=== PATIENT | male | born 1980 | race Caucasian/White ===

== ENCOUNTER 2018-10-05 16:30 | Emergency (ER) | payer MEDICAID ==
[~2018-10-05] VITALS: Ht 172.7 cm; Wt 108.9 kg
[2018-10-05] MEDS ORDERED: IOHEXOL 300 MG/ML 100ML VIAL. IV ONE (17:00)
[2018-10-05] MEDS ORDERED: CONTRAST GIVEN. MC PRN (17:00)
[2018-10-05 17:07] LABS: BASO % 1 % (0-3); EOS # 0.1 x10^3/uL (0.0-0.7); EOS % 1 % (0-3); HEMATOCRIT 41.5 % (39.0-53.0); HEMOGLOBIN 14.6 g/dL (13.0-17.5); LYMPH # 2.4 x10^3/uL (1.0-4.8); LYMPH % 32 % (24-48); MEAN CORPUSCULAR HEMOGLOBIN 31 pg (25-35); MEAN CORPUSCULAR HGB CONC 35 g/dL (31-37); MEAN CORPUSCULAR VOLUME 89 fL (79-100); MONO # 0.6 x10^3/uL (0.0-1.1); MONO % 8 % (0-9); NEUT # 4.4 x10^3uL (1.8-7.7); NEUT % 59 % (31-73); PLATELET COUNT 339 x10^3/uL (140-400); RED BLOOD COUNT 4.67 x10^6/uL (4.30-5.70); RED CELL DISTRIBUTION WIDTH 13.4 % (11.5-14.5); WHITE BLOOD COUNT 7.4 x10^3/uL (4.0-11.0)
[2018-10-05 17:08] LABS: BILIRUBIN,URINE NEGATIVE (NEG); CLARITY,URINE CLEAR; COLOR,URINE YELLOW; NITRITE,URINE NEGATIVE (NEG); PROTEIN,URINE NEGATIVE (NEG-TRACE)
[2018-10-05 17:13] LABS: BACTERIA,URINE 0 /HPF (0-FEW); RBC,URINE 0 /HPF (0-2); WBC,URINE 0 /HPF (0-4)
[2018-10-05 17:16] LABS: CALCIUM 9.3 mg/dL (8.5-10.1); CREATININE 0.9 mg/dL (0.7-1.3); GFR 94.4; POTASSIUM 3.7 mmol/L (3.5-5.1)
[2018-10-05 17:22] LABS: ALBUMIN 3.8 g/dL (3.4-5.0); ALBUMIN/GLOBULIN RATIO 0.9 (1.0-1.7); TOTAL BILIRUBIN 0.2 mg/dL (0.2-1.0); TOTAL PROTEIN 7.9 g/dL (6.4-8.2)
[2018-10-05] MEDS ORDERED: PANTOPRAZOLE 40 MG TABLET.DR. PO ONE (17:30)
[2018-10-05] MEDS ORDERED: KETOROLAC 15 MG/ML VIAL. IV ONE (17:30)
--- NOTE | 2018-10-05 17:48 | PHYS DOC ---
Past Medical History Past Medical History: No Pertinent History Additional Past Medical Histor: "some heart condition" (MARLON VIDALES MD) Past Surgical History: Appendectomy (MARLON VIDALES MD) Alcohol Use: None Drug Use: None (MARLON VIDALES MD) Adult General Chief Complaint Chief Complaint: ABDOMINAL PAIN HPI HPI Patient is a 37 year old male who presents with abdominal pain left-sided for the last 2 days associated with some nausea occasional vomiting and 3-4 episodes a day of diarrhea no fever no sick contacts no recent antibiotics pain is moderate cramping constant nonradiating (MARLON VIDALES MD) Review of Systems Review of Systems Constitutional: Denies fever or chills [] Eyes: Denies change in visual acuity, redness, or eye pain [] HENT: Denies nasal congestion or sore throat [] Respiratory: Denies cough or shortness of breath [] Cardiovascular: No additional information not addressed in HPI [] Musculoskeletal: Denies back pain or joint pain [] Integument: Denies rash or skin lesions [] Neurologic: Denies headache, focal weakness or sensory changes [] All other systems were reviewed and found to be within normal limits, except as documented in this note. (MARLON VIDALES MD) Current Medications Current Medications Current Medications Medications (Trade) Dose Ordered Sig/Ayad Start Time Stop Time Status Last Admin Dose Admin Acetaminophen/ Hydrocodone Bitart (Lortab 5/325) 1 tab 1X ONCE 10/05/18 18:45 10/05/18 18:46 DC 10/05/18 18:46 1 TAB Info (CONTRAST GIVEN -- Rx MONITORING) 1 each PRN DAILY PRN 10/05/18 17:00 10/07/18 16:59 Iohexol (Omnipaque 300 Mg/ml) 75 ml 1X ONCE 10/05/18 17:00 10/05/18 17:01 DC 10/05/18 17:56 75 ML Ketorolac Tromethamine (Toradol 15mg Vial) 15 mg 1X ONCE 10/05/18 17:30 10/05/18 17:31 DC 10/05/18 17:35 15 MG Ondansetron HCl (Zofran) 4 mg 1X ONCE 10/05/18 18:45 10/05/18 18:46 DC 10/05/18 18:46 4 MG Pantoprazole Sodium (Protonix) 40 mg 1X ONCE 10/05/18 17:30 10/05/18 17:31 DC 10/05/18 17:35 40 MG (SAKINA ESCALANTE Jr. DO) Allergies Allergies Allergies Coded Allergies Type Severity Reaction Last Updated Verified No Known Drug Allergies 10/23/15 No (SAKINA ESACLANTE Jr. DO) Physical Exam Physical Exam Constitutional: Well developed, well nourished, no acute distress, non-toxic appearance. [] HENT: Normocephalic, atraumatic, bilateral external ears normal, oropharynx moist, no oral exudates, nose normal. [] Eyes: PERRLA, EOMI, conjunctiva normal, no discharge. [] Neck: Normal range of motion, no tenderness, supple, no stridor. [] Pulmonary: Normal respiratory effort no increased work of breathing no obvious chest wall trauma Abdomen: Bowel sounds normal, soft, left lower quadrant and left upper quadrant tenderness, no masses, no pulsatile masses. [] Skin: Warm, dry, no erythema, no rash. [] Back: No tenderness, no CVA tenderness. [] Extremities: No tenderness, no cyanosis, no clubbing, ROM intact, no edema. [] Neurologic: Alert and oriented X 3, normal motor function, normal sensory function, no focal deficits noted. [] Psychologic: Affect normal, judgement normal, mood normal. [] (MARLON VIDALES MD) Current Patient Data Vital Signs Vital Signs Date Time Temp Pulse Resp B/P (MAP) Pulse Ox O2 Delivery O2 Flow Rate FiO2 10/05/18 18:46 19 97 Room Air 10/05/18 17:00 98.8 100 134/80 (98) 98.8 (SAKINA ESCALANTE Jr. DO) Lab Values Laboratory Tests Test 10/05/18 17:00 White Blood Count 7.4 x10^3/uL (4.0-11.0) Red Blood Count 4.67 x10^6/uL (4.30-5.70) Hemoglobin 14.6 g/dL (13.0-17.5) Hematocrit 41.5 % (39.0-53.0) Mean Corpuscular Volume 89 fL (79-100) Mean Corpuscular Hemoglobin 31 pg (25-35) Mean Corpuscular Hemoglobin Concent 35 g/dL (31-37) Red Cell Distribution Width 13.4 % (11.5-14.5) Platelet Count 339 x10^3/uL (140-400) Neutrophils (%) (Auto) 59 % (31-73) Lymphocytes (%) (Auto) 32 % (24-48) Monocytes (%) (Auto) 8 % (0-9) Eosinophils (%) (Auto) 1 % (0-3) Basophils (%) (Auto) 1 % (0-3) Neutrophils # (Auto) 4.4 x10^3uL (1.8-7.7) Lymphocytes # (Auto) 2.4 x10^3/uL (1.0-4.8) Monocytes # (Auto) 0.6 x10^3/uL (0.0-1.1) Eosinophils # (Auto) 0.1 x10^3/uL (0.0-0.7) Basophils # (Auto) 0.0 x10^3/uL (0.0-0.2) Urine Collection Type Unknown Urine Color Yellow Urine Clarity Clear Urine pH 6.0 Urine Specific Colton >=1.030 Urine Protein Negative mg/dL (NEG-TRACE) Urine Glucose (UA) Negative mg/dL (NEG) Urine Ketones (Stick) Negative mg/dL (NEG) Urine Blood Negative (NEG) Urine Nitrite Negative (NEG) Urine Bilirubin Negative (NEG) Urine Urobilinogen Dipstick 1.0 mg/dL (0.2 mg/dL) Urine Leukocyte Esterase Negative (NEG) Urine RBC 0 /HPF (0-2) Urine WBC 0 /HPF (0-4) Urine Bacteria 0 /HPF (0-FEW) Urine Mucus Marked /LPF Sodium Level 143 mmol/L (136-145) Potassium Level 3.7 mmol/L (3.5-5.1) Chloride Level 104 mmol/L (98-107) Carbon Dioxide Level 29 mmol/L (21-32) Anion Gap 10 (6-14) Blood Urea Nitrogen 13 mg/dL (8-26) Creatinine 0.9 mg/dL (0.7-1.3) Estimated GFR (Cockcroft-Gault) 94.4 BUN/Creatinine Ratio 14 (6-20) Glucose Level 106 mg/dL (70-99) H Calcium Level 9.3 mg/dL (8.5-10.1) Total Bilirubin 0.2 mg/dL (0.2-1.0) Aspartate Amino Transferase (AST) 35 U/L (15-37) Alanine Aminotransferase (ALT) 84 U/L (16-63) H Alkaline Phosphatase 93 U/L (46-116) Total Protein 7.9 g/dL (6.4-8.2) Albumin 3.8 g/dL (3.4-5.0) Albumin/Globulin Ratio 0.9 (1.0-1.7) L Lipase 150 U/L (73-393) Laboratory Tests 10/05/18 17:00 Laboratory Tests 10/05/18 17:00 (SAKINA ESCALANTE Jr., DO) EKG EKG [] (MARLON VIDALES MD) Radiology/Procedures Radiology/Procedures [] (MARLON VIDALES MD) Impressions: PROCEDURE: CT ABD PELV W/ IV CONTRST ONLY PQRS Compliance statement: One or more of the following individualized dose reduction techniques were utilized for this examination: 1. Automated exposure control. 2. Adjustment of the mA and/or kV according to patient size. 3. Use of iterative reconstruction technique. Indication:SEVERE LEFT SIDED ABD PAIN, [id number] 75ML, NO PRIORS TECHNIQUE: CT abdomen and pelvis with IV contrast with multiplanar reformats. COMPARISON: None FINDINGS: Heart is normal in size. No pericardial or pleural effusion. Clear lung bases. Liver, spleen, gallbladder, pancreas, adrenals and kidneys within normal limits. No enlarged retroperitoneal or pelvic adenopathy. No free pelvic fluid or ascites. No bowel obstruction. The prostate and seminal vesicles show no large mass. Urinary bladder is within normal limits. No suspicious bony lesion. IMPRESSION: No acute findings. Electronically signed by: Jasvir Saldana DO (10/05/2018 6:15 PM) [facility] (SAKINA ESCALANTE Jr., DO) Course & Med Decision Making Course & Med Decision Making Pertinent Labs and Imaging studies reviewed. (See chart for details) []37-year-old male history of appendectomy presenting with left-sided abdominal discomfort with some diarrhea for the last couple of days ago due to gastroenteritis however he has some tenderness with a be reasonable to rule out diverticulitis with CT scan and lab work is essentially unremarkable care signed over to Dr. Escalante at [address] scan (LENAGMARLON GOLDSMITH Disclaimer Dragon Disclaimer This electronic medical record was generated, in whole or in part, using a voice recognition dictation system. (MARLON VIDALES MD) Departure Departure Impression: Primary Impression: Gastroenteritis Disposition: 01 HOME, SELF-CARE Condition: STABLE Referrals: UNKNOWN PCP NAME (PCP) Patient Instructions: Viral Gastroenteritis Scripts Diphenoxylate Hcl/Atropine (LOMOTIL TABLET) 1 Each Tablet 1 TAB PO TID PRN for DIARRHEA, #15 TAB Prov: SAKINA ESCALANTE Jr. DO 10/05/18 Tramadol Hcl (TRAMADOL HCL) 50 Mg Tablet 50 MG PO Q6HRS PRN for PAIN, #10 TAB Prov: SAKINA ESCALANTE Jr. DO 10/05/18 Ondansetron Hcl (ZOFRAN) 4 Mg Tablet 4 MG PO PRN TID PRN for NAUSEA/VOMITING, #15 nausea/vomiting Prov: SAKINA ESCALANTE Jr. DO 10/05/18 MARLON VIDALES MD Oct 05, 2018 17:48 SAKINA ESCALANTE Jr. DO Oct 05, 2018 18:55
--- NOTE | 2018-10-05 18:17 | RAD ---
PQRS Compliance statement: One or more of the following individualized dose reduction techniques were utilized for this examination: 1. Automated exposure control. 2. Adjustment of the mA and/or kV according to patient size. 3. Use of iterative reconstruction technique. Indication:SEVERE LEFT SIDED ABD PAIN, [id number] 75ML, NO PRIORS TECHNIQUE: CT abdomen and pelvis with IV contrast with multiplanar reformats. COMPARISON: None FINDINGS: Heart is normal in size. No pericardial or pleural effusion. Clear lung bases. Liver, spleen, gallbladder, pancreas, adrenals and kidneys within normal limits. No enlarged retroperitoneal or pelvic adenopathy. No free pelvic fluid or ascites. No bowel obstruction. The prostate and seminal vesicles show no large mass. Urinary bladder is within normal limits. No suspicious bony lesion. IMPRESSION: No acute findings. Electronically signed by: Jasvir Saldana DO (10/05/2018 6:15 PM) [facility]
[2018-10-05 18:30] VITALS: BP 122/77
[2018-10-05] MEDS ORDERED: ONDANSETRON PF 4 MG/2 ML VIAL. IV ONE (18:45)
[2018-10-05] MEDS ORDERED: HYDROcodone/APAP 5/325MG 1 TAB TABLET PO ONE (18:45)
[2018-10-05] MEDS ORDERED: ONDA4TAB7 PO (18:55)
[2018-10-05] MEDS ORDERED: DIPH1TAB PO (18:55)
[2018-10-05] MEDS ORDERED: TRAM50TA PO (18:55)
== END 2018-10-05 19:02 | disposition home or self-care (01) ==
LOC: ER 16:30
DX: K52.9 Noninfective gastroenteritis and colitis, unspecified (principal); Z90.89 Acquired absence of other organs
CPT/HCPCS: 36415; 74177; 80053; 81001; 83690; 85025; 96374; 96375; 99284; J1885; J2405; Q9967